=== PATIENT | male | born 1970 | race Caucasian/White ===

== ENCOUNTER 2016-10-21 14:56 | Emergency (ER) | payer OTHER ==
[~2016-10-21] VITALS: Ht 182.9 cm; Wt 133.8 kg
[2016-10-21 15:30] VITALS: BP 162/93
--- NOTE | 2016-10-21 16:01 | PHYS DOC ---
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 He is right-handed. He fell in the back of his property and into a [place]in and presents with laceration of the palmar aspect of his left thumb. He states the functions fully is able to flex and extend it without any difficulty. He states his last tetanus shot was 6 years ago. He denies any numbness of his hand or any other injuries. Review of Systems Review of Systems Constitutional: Denies fever or chills [] Eyes: Denies change in visual acuity, redness, or eye pain [] HENT: Denies nasal congestion or sore throat [] Respiratory: Denies cough or shortness of breath [] Cardiovascular: No additional information not addressed in HPI [] GI: Denies abdominal pain, nausea, vomiting, bloody stools or diarrhea [] : Denies dysuria or hematuria [] Musculoskeletal: Denies back pain or joint pain [] Integument: Denies rash or skin lesions [] Neurologic: Denies headache, focal weakness or sensory changes [] Endocrine: Denies polyuria or polydipsia [] Current Medications Current Medications Current Medications Medications (Trade) Dose Ordered Sig/Gunnar Start Time Stop Time Status Last Admin Dose Admin Diphtheria/ Tetanus/Acell Pertussis (Boostrix) 0.5 ml ONCE ONCE 10/21/16 16:15 10/21/16 16:16 DC 10/21/16 16:29 0.5 ML Lidocaine/Sodium Bicarbonate (Buffered Lidocaine 1%) 20 ml STK-MED ONCE 10/21/16 16:34 10/21/16 16:35 DC Allergies Allergies Allergies Coded Allergies Type Severity Reaction Last Updated Verified ibuprofen Allergy Severe SEIZURE 10/21/16 Yes Uncoded Allergies Type Severity Reaction Last Updated Verified HIGH BP MED-CAN'T REMEMBER Adverse Reaction Unknown 10/21/16 Physical Exam Physical Exam Constitutional: Well developed, well nourished, no acute distress, non-toxic appearance. [] HENT: Normocephalic, atraumatic, bilateral external ears normal, oropharynx moist, no oral exudates, nose normal. [] Eyes: PERRLA, EOMI, conjunctiva normal, no discharge. [] Neck: Normal range of motion, no tenderness, supple, no stridor. [] Cardiovascular:Heart rate regular rhythm, no murmur [] Lungs & Thorax: Bilateral breath sounds clear to auscultation [] Abdomen: Bowel sounds normal, soft, no tenderness, no masses, no pulsatile masses. [] Skin: Warm, dry, no erythema, no rash. 2 similar laceration on the introitus aspect of the thumb between the PIP and DIP joint. Back: No tenderness, no CVA tenderness. [] Extremities: No tenderness, no cyanosis, no clubbing, ROM intact, no edema. [] Neurologic: Alert and oriented X 3, normal motor function, normal sensory function, no focal deficits noted. Flexion and extension at the thumb in addition to opposition intact, sensation intact to light touch around the left thumb Psychologic: Affect normal, judgement normal, mood normal. [] Current Patient Data Vital Signs Vital Signs Date Time Temp Pulse Resp B/P (MAP) Pulse Ox O2 Delivery O2 Flow Rate FiO2 10/21/16 15:30 98.4 95 20 98 Room Air 98.4 EKG EKG [] Radiology/Procedures Radiology/Procedures [] Impressions: Thumb laceration Course & Med Decision Making Course & Med Decision Making Pertinent Labs and Imaging studies reviewed. (See chart for details) Patient refused x-rays of his left thumb. Tetanus shot was updated. Suture was repaired. He is being discharged with 7 days of Augmentin. Instructed to have his sutures removed in 9-10 days. Return precautions given. He is agreeable Plan B discharged in stable condition this time. Dragon Disclaimer Dragon Disclaimer This electronic medical record was generated, in whole or in part, using a voice recognition dictation system. Departure Departure Impression: Primary Impression: Laceration Disposition: 01 HOME, SELF-CARE Condition: STABLE Referrals: MARY URIOSTEGUI (PCP) Patient Instructions: Laceration Care, Adult Additional Instructions: You will need to have your sutures removed in 9-10 days from now. You'll need take antibiotics for the next 7 days. Watch for any signs of infection such as swelling, fevers, increasing pain. Please have him please return back to emergency department. Scripts Amoxicillin/Potassium Clav (AUGMENTIN 875-125 TABLET) 1 Each Tablet 1 TAB PO BID, #14 TAB Prov: MARYA AKHTAR MD 10/21/16 Laceration Repair Lac Repair Indication: Thumb laceration Procedure: The patient was placed in the appropriate position and anesthesia around the left thumb with 2 mL of buffered lidocaine. The area was then cleaned with iodine scrub and copious amounts of sterile water. The laceration was 6 simple interrupted ,4-0 nylon. The wound area was then dressed with Band- Aid. Total repaired wound length: 2 cm. The patient tolerated the procedure well Complications: Complications noted.. MARYA AKHTAR MD Oct 21, 2016 16:01
[2016-10-21] MEDS ORDERED: DIPHTH,PERTUSS(ACELL),TET TOX 0.5 ML DISP.SYRIN. VAX IM ONE (16:15)
[2016-10-21] MEDS ORDERED: LIDOCAINE 1% / SOD BICARB 8.4% 20 ML VIAL. IJ ONE ×2 (16:34→16:45)
[2016-10-21] MEDS ORDERED: AMOX1TAB61 PO (17:08)
== END 2016-10-21 17:05 | disposition home or self-care (01) ==
LOC: ER 14:56
DX: S61.012A Laceration without foreign body of left thumb without damage to nail, initial encounter (principal); I48.91 Unspecified atrial fibrillation; I10 Essential (primary) hypertension; G61.0 Guillain-Barre syndrome; Z88.6 Allergy status to analgesic agent; Z88.8 Allergy status to other drugs, medicaments and biological substances; W18.39XA Other fall on same level, initial encounter; Y93.89 Activity, other specified; Y92.89 Other specified places as the place of occurrence of the external cause; Y99.8 Other external cause status
CPT/HCPCS: 12001; 90471; 90715; 99283-25

== ENCOUNTER 2020-04-18 07:13 | Emergency (ER) | payer OTHER ==
[~2020-04-18] VITALS: Ht 182.9 cm; Wt 113.6 kg
[~2020-04-18 07:13] MED LIST: AMOX1TAB61 PO
[2020-04-18] MEDS ORDERED: CLINDAMYCIN 600MG PREMIX 50 ML IV ONE (07:45)
[2020-04-18] MEDS ORDERED: IV NORMAL SALINE 1000ML BAG 1,000 ML IV ONE (07:45)
[2020-04-18] MEDS ORDERED: MORPHINE SULFATE 10 MG/ML VIAL. IV ONE (07:45)
--- NOTE | 2020-04-18 08:05 | ED.ADGEN ---
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 This is happened to him previously. He has had cellulitis before due to this. He states that he has been trying to keep it clean at home but over the day yesterday his foot started to swell up. He states that he has been up all night crying due to pain. He denies any kind of fevers. He states it is extremely painful to walk on. He he has been on Bactrim previously for cellulitis. Review of Systems: Review of Systems: Complete ROS is negative unless otherwise documented in HPI Current Medications: Current Medications Medications (Trade) Dose Ordered Sig/Gunnar Start Time Stop Time Status Last Admin Dose Admin Clindamycin Phosphate 50 ml @ 100 mls/hr 1X ONCE 04/18/20 07:45 04/18/20 08:14 DC 04/18/20 08:08 100 MLS/HR Morphine Sulfate (Morphine Sulfate) 5 mg 1X ONCE 04/18/20 07:45 04/18/20 07:49 DC 04/18/20 08:08 5 MG Nitroglycerin (Nitrostat) 0.4 mg PRN Q5MIN PRN 04/18/20 08:45 Sodium Chloride 1,000 ml @ 1,000 mls/hr 1X ONCE 04/18/20 07:45 04/18/20 08:44 DC 04/18/20 08:09 1,000 MLS/HR Allergies: Allergies: Allergies Coded Allergies Type Severity Reaction Last Updated Verified ibuprofen Allergy Severe SEIZURE 10/21/16 Yes Uncoded Allergies Type Severity Reaction Last Updated Verified HIGH BP MED-CAN'T REMEMBER Adverse Reaction Unknown 10/21/16 Physical Exam: PE: General: Awake, alert, NAD. Well Nourished, well hydrated. Cooperative HEENT: Atraumatic, EOMI, PERRL, airway patent, moist oral mucosa Neck: Supple, trachea midline Respiratory: CTA bilaterally, normal effort, no wheezing/crackles CV: RRR, no murmur, cap refill <2 GI: Soft, nondistended, nontender, no masses MSK: No obvious deformities Skin: Warm, dry, intact. Left foot: Left foot with erythema, swelling, warmth suggestive of cellulitis, painful to the touch, 2+ DP pulses, appears to be old wounds that are healed at the top of the foot Neuro: A&O x3, speech NL, sensory and motor grossly intact, no focal deficits Psych: Normal affect, normal mood, not suicidal or homicidal Current Patient Data: Labs: Laboratory Tests Test 04/18/20 08:02 White Blood Count 28.1 x10^3/uL (4.0-11.0) H Red Blood Count 4.59 x10^6/uL (4.30-5.70) Hemoglobin 12.7 g/dL (13.0-17.5) L Hematocrit 38.4 % (39.0-53.0) L Mean Corpuscular Volume 84 fL (79-100) Mean Corpuscular Hemoglobin 28 pg (25-35) Mean Corpuscular Hemoglobin Concent 33 g/dL (31-37) Red Cell Distribution Width 14.3 % (11.5-14.5) Platelet Count 298 x10^3/uL (140-400) Neutrophils (%) (Auto) 86 % (31-73) H Lymphocytes (%) (Auto) 4 % (24-48) L Monocytes (%) (Auto) 9 % (0-9) Eosinophils (%) (Auto) 0 % (0-3) Basophils (%) (Auto) 1 % (0-3) Neutrophils # (Auto) 24.2 x10^3/uL (1.8-7.7) H Lymphocytes # (Auto) 1.1 x10^3/uL (1.0-4.8) Monocytes # (Auto) 2.5 x10^3/uL (0.0-1.1) H Eosinophils # (Auto) 0.0 x10^3/uL (0.0-0.7) Basophils # (Auto) 0.2 x10^3/uL (0.0-0.2) Platelet Estimate Pending Sodium Level 135 mmol/L (136-145) L Potassium Level 3.9 mmol/L (3.5-5.1) Chloride Level 100 mmol/L (98-107) Carbon Dioxide Level 23 mmol/L (21-32) Anion Gap 12 (6-14) Blood Urea Nitrogen 15 mg/dL (8-26) Creatinine 1.4 mg/dL (0.7-1.3) H Estimated GFR (Cockcroft-Gault) 53.9 Glucose Level 193 mg/dL (70-99) H Lactic Acid Level 2.2 mmol/L (0.4-2.0) H Calcium Level 8.1 mg/dL (8.5-10.1) L Troponin I Quantitative < 0.017 ng/mL (0.000-0.055) Laboratory Tests 04/18/20 08:02 Laboratory Tests 04/18/20 08:02 Vital Signs: Vital Signs Date Time Temp Pulse Resp B/P (MAP) Pulse Ox O2 Delivery O2 Flow Rate FiO2 04/18/20 07:41 98.0 106 20 171/99 (123) 100 Room Air 98.0 EKG: EKG: [] Heart Score: Risk Factors: Risk Factors: DM, Current or recent (<one month) smoker, HTN, HLP, family history of CAD, obesity. Risk Scores: Score 0 - 3: 2.5% MACE over next 6 weeks - Discharge Home Score 4 - 6: 20.3% MACE over next 6 weeks - Admit for Clinical Observation Score 7 - 10: 72.7% MACE over next 6 weeks - Early Invasive Strategies Radiology/Procedures: Radiology/Procedures: [] Course & Med Decision Making: Course & Med Decision Making Pertinent Labs and Imaging studies reviewed. (See chart for details) Patient is a 49-year-old male who presents to the emergency room complaining of severe pain in the foot with swelling and erythema. He states is very similar to when he has had cellulitis in the past. Upon evaluation patient is in distress and is requesting pain medicine as soon as possible. Patient is continuously moaning and does not want his foot to be touched but he is able to cross his foot over his leg without difficulty. Patient does appear to have cellulitis to the foot. Due to his severe pain will order lab work and give him IV antibiotics. 0850: Patient started to complain of chest pain. EKG, chest xray, and troponin ordered. Nitro was ordered for pain. Chest tightness started shortly after receiving morphine. It did resolve in the emergency room. EKG, chest x-ray, troponin were all normal. It is likely that patient's chest pain was from the morphine. Patient does have a significantly elevated white blood cell count. I did offer him admission here in the emergency room for IV antibiotics and fluids. Patient declines and would like to go home. Will prescribe him cl indamycin at home. We have discussed that if the redness gets any worse, he develops any kind of fevers, or has any other concerns he needs to return to the emergency room for admission. Patient's test results and vitals while in the ED were fully reviewed and discussed with the patient. Patient is stable and at this time does not need admission to the hospital. We have discussed strict return precautions and the importance of following up with their Primary Care Physician. Patient stated understanding and was given an opportunity to ask any questions. Patient is in agreement with plan. Shane Disclaimer: Shane Disclaimer: This electronic medical record was generated, in whole or in part, using a voice recognition dictation system. Departure Departure Impression: Primary Impression: Cellulitis Disposition: 01 DC HOME SELF CARE/HOMELESS Condition: IMPROVED Referrals: MARY URIOSTEGUI (PCP) Patient Instructions: Cellulitis Scripts Clindamycin Hcl (CLINDAMYCIN HCL) 150 Mg Capsule 3 CAP PO TID for 7 Days, #63 CAP Prov: SHAI TAY MD 04/18/20 SHAI TAY MD Apr 18, 2020 08:05
[2020-04-18 08:24] LABS: BASO # 0.2 x10^3/uL (0.0-0.2); BASO % 1 % (0-3); EOS % 0 % (0-3); HEMATOCRIT 38.4 % (39.0-53.0); HEMOGLOBIN 12.7 g/dL (13.0-17.5); LYMPH # 1.1 x10^3/uL (1.0-4.8); LYMPH % 4 % (24-48); MEAN CORPUSCULAR HEMOGLOBIN 28 pg (25-35); MEAN CORPUSCULAR HGB CONC 33 g/dL (31-37); MEAN CORPUSCULAR VOLUME 84 fL (79-100); MONO # 2.5 x10^3/uL (0.0-1.1); MONO % 9 % (0-9); NEUT # 24.2 x10^3/uL (1.8-7.7); NEUT % 86 % (31-73); PLATELET COUNT 298 x10^3/uL (140-400); RED BLOOD COUNT 4.59 x10^6/uL (4.30-5.70); RED CELL DISTRIBUTION WIDTH 14.3 % (11.5-14.5); WHITE BLOOD COUNT 28.1 x10^3/uL (4.0-11.0)
[2020-04-18 08:32] LABS: CALCIUM 8.1 mg/dL (8.5-10.1); CREATININE 1.4 mg/dL (0.7-1.3); GFR 53.9; POTASSIUM 3.9 mmol/L (3.5-5.1)
[2020-04-18] MEDS ORDERED: NITROGLYCERIN SUBLINGUAL 0.4 MG BOTTLE OF 25. SL PRN (08:45)
--- NOTE | 2020-04-18 09:04 | RAD ---
EXAMINATION: XR CHEST 1V CLINICAL HISTORY: Infection EXAM DATE/TIME: 04/18/2020 8:44 AM COMPARISON: 02/28/2010 FINDINGS: Lines, Tubes, and Devices: None. Cardiomediastinal Silhouette: Within normal limits. Lungs and Pleura: Pulmonary hypoexpansion without evidence of focal airspace consolidation or pleural effusion. Nonspecific mild diffuse interstitial prominence, similar to slightly increased from prior study. Bones and Soft Tissues: No acute osseous abnormality. IMPRESSION: No definitive evidence of acute cardiopulmonary abnormality or significant interval change. Electronically signed by: Nilton Zelaya DO (04/18/2020 9:02 AM) [id number]
--- NOTE | 2020-04-18 09:09 | RAD ---
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 Anterior tibiotalar degenerative changes, incompletely blair luated. No evidence of focal osteopenia, periosteal reaction, or osseous destructive changes to sugge st osteomyelitis. No acute fracture. Plantar calcaneal enthesophyte. Soft tissue swelling greatest al [place] the dorsal forefoot. No soft tissue emphysema visualized. IMPRESSION: No acute osseous abnormality left foot. No radiographic evidence of osteomyelitis. If concerned for osteomyelitis, consider MRI for further e valuation as indicated. Electronically signed by: Nilton Zelaya DO (04/18/2020 9:06 AM) [id number]
[2020-04-18 10:04] VITALS: BP 150/76
--- NOTE | 2020-04-18 10:05 | EKG ---
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
[2020-04-18] MEDS ORDERED: CLIN150C15 PO (10:07)
[2020-04-18 11:01] LABS: % BANDS 5 % (0-9); % LYMPHS 5 % (24-48); % MONOS 7 % (0-10); % SEGS 83 % (35-66); PLT ESTIMATE ADEQUATE (ADEQUATE)
== END 2020-04-18 10:43 | disposition home or self-care (01) ==
LOC: ER 07:13
DX: L03.116 Cellulitis of left lower limb (principal); R60.0 Localized edema; L53.9 Erythematous condition, unspecified; I48.20 Chronic atrial fibrillation, unspecified; E11.9 Type 2 diabetes mellitus without complications; I10 Essential (primary) hypertension; Z88.8 Allergy status to other drugs, medicaments and biological substances
CPT/HCPCS: 36415; 71045; 73630; 80048; 83605; 84484; 85007; 85025; 87040; 93005; 96365; 96375; 99285; J2270; J3490; J7030